=== PATIENT | female | born 1965 | race Caucasian/White ===

== ENCOUNTER 2018-06-26 22:22 | Emergency (ER) | payer SELFPAY ==
[~2018-06-26] VITALS: Ht 157.5 cm; Wt 81.3 kg
[2018-06-26 22:45] VITALS: BP 109/76
[2018-06-27] MEDS ORDERED: ACETAMINOPHEN 500MG TABLET PO ONE (01:00)
== END 2018-06-27 01:15 | disposition home or self-care (01) ==
LOC: ER 22:22
DX: S00.83XA Contusion of other part of head, initial encounter (principal); X58.XXXA Exposure to other specified factors, initial encounter; Y93.89 Activity, other specified; Y92.69 Other specified industrial and construction area as the place of occurrence of the external cause; Y99.8 Other external cause status
CPT/HCPCS: 99282